=== PATIENT | male | born 1960 ===

== ENCOUNTER 2016-08-17 15:57 | Emergency (ER) | payer OTHER ==
[2016-08-17 16:45] LABS: #Basophils 0.1 thou/uL (0.0-0.2); #Eosinphils 0.1 thou/uL (0.0-0.7); #Monocytes 0.7 thou/uL (0.11-0.59); #Neutrophils 2.1 thou/uL (1.40-6.50); %Basophils 2.7 % (0.0-1.0); %Eosinophils 1.3 % (0.0-10.0); %Lymphocytes 39.1 % (21.0-51.0); %Monocytes 14.4 % (0.0-10.0); Hematocrit 37.8 % (42.0-52.0); Mean Platelet Volume 9.1 fL (7.4-10.4); Red Blood Cell (RBC) Count 4.12 mill/uL (4.70-6.10)
[2016-08-17 16:56] LABS: ALT (SGPT) 27 U/L (0-55); AST (SGOT) 52 U/L (5-34); Alkaline Phosphatase 102 U/L (40-150); Anion Gap 21 mmol/L (10-20); BUN (Urea Nitrogen) 56 mg/dL (8.4-25.7); Bilirubin, Total 0.3 mg/dL (0.2-1.2); Calc. Creatinine Clearance 0 mL/min (70-130); Calcium 9.3 mg/dL (7.8-10.44); Carbon Dioxide 31 mmol/L (22-29); Chloride 81 mmol/L (98-107); Estimated GFR-MDRD 22; Globulin 4.1 g/dL (2.4-3.5); Protein, Total 8.1 g/dL (6.0-8.3)
[2016-08-17 17:17] LABS: Bilirubin Negative (Negative); Blood, Urine Negative (Negative); Glucose, Urine (Dipstick) 250 mg/dL (Negative); Ketone, Urine Negative (Negative); Nitrite Negative (Negative); Protein, Urine (Dipstick) Negative (Neg-Trace); Urobilinogen 0.2 mg/dL (0.2-1.0)
[2016-08-17 17:24] LABS: Bacteria/HPF 1+ HPF (None Seen); RBC/HPF None Seen HPF (0-3); Squamous Epithelial None Seen HPF (0-3)
[2016-08-17] MEDS ORDERED: Pot Chloride/Pot Bicarb/Cit Ac 25 mEq Effervescent Tablet ONE (17:26)
[2016-08-17 17:40] LABS: Reticulocyte Count 1.1 % (0.5-1.5)
[2016-08-17] MEDS ORDERED: Sodium Chloride 0.9% 1,000 ML ONE (17:49)
[2016-08-17] MEDS ORDERED: Insulin Regular 300 UNITS/3 ML VIAL ONE (18:02)
[2016-08-17 19:15] LABS: Troponin I 0.027 ng/mL (< 0.028)
== END 2016-08-17 20:02 | disposition short-term general hospital (02) ==
LOC: NAV ERS 15:57
DX: M62.82 Rhabdomyolysis (principal); I12.9 Hypertensive chronic kidney disease with stage 1 through stage 4 chronic kidney disease, or unspecified chronic kidney disease; N18.9 Chronic kidney disease, unspecified; E87.6 Hypokalemia; G35 Multiple sclerosis; E11.9 Type 2 diabetes mellitus without complications; E03.9 Hypothyroidism, unspecified; I25.10 Atherosclerotic heart disease of native coronary artery without angina pectoris; D64.9 Anemia, unspecified; Z79.4 Long term (current) use of insulin; Z79.82 Long term (current) use of aspirin; Z79.891 Long term (current) use of opiate analgesic; Z79.899 Other long term (current) drug therapy
CPT/HCPCS: 36416; 80053; 81003; 81015; 82550; 82553; 84484; 85025; 85046; 93005; 96361; 96374; J1815; J7050